=== PATIENT | male | born 1955 | race Caucasian/White ===

== ENCOUNTER 2017-02-19 10:32 | Inpatient (IN) | payer BC, OTHER ==
[~2017-02-19] VITALS: Ht 182.9 cm; Wt 127.8 kg
[2017-02-19] MEDS ORDERED: SODIUM CHLORIDE FLUSH 10ML SYR IVF ONE (11:00)
[2017-02-19] MEDS ORDERED: SODIUM CHLORIDE 0.9% 1,000 ML IV ONE (11:00)
[2017-02-19 12:03] LABS: HEMATOCRIT 44.8 % (39.2-51.8); HEMOGLOBIN 15.2 g/dL (13.7-18.0); WHITE BLOOD COUNT 12.8 x10^3/uL (3.4-10)
[2017-02-19 12:17] LABS: BLOOD UREA NITROGEN 20 mg/dL (7-18)
[2017-02-19 12:22] LABS: ASPARTATE AMINO TRANSFERASE 36 U/L (15-37)
[2017-02-19 12:34] LABS: DIFF TOTAL CELLS COUNTED 100 CELL DIFF
[2017-02-19 12:36] LABS: VERIFY COUNTS? YES
[2017-02-19] MEDS ORDERED: OMNIPAQUE 350 MG/ML, 150 ML BOTTLE ONE (13:15)
[2017-02-19] MEDS ORDERED: SODIUM CHLORIDE FLUSH 10ML SYR IVF PRN (14:30)
[2017-02-19 17:26] VITALS: BP 144/89
[2017-02-19] MEDS ORDERED: MORPHINE SULFATE 4 MG/ML, 1ML IVPush ONE ×2 (17:30→18:00)
[2017-02-19] MEDS ORDERED: PNEUMOCOCCAL VACC.PER PHARMACY IM ONE (17:30)
[2017-02-19] MEDS ORDERED: D5%-0.45% NACL 1,000 ML IV SCH (17:51)
[2017-02-19] MEDS ORDERED: ONDANSETRON 2MG/ML, 2ML IVPush PRN (18:00)
[2017-02-19] MEDS ORDERED: LABETALOL 5MG/ML, 20ML IVPush PRN (18:00)
[2017-02-19 18:10] LABS: ABG COLLECTION SITE RIGHT RADIAL; COLLATERAL CIRCULATION TESTING NORMAL
[2017-02-19] MEDS ORDERED: VANCOMYCIN PMX 1GM/200ML 200 ML IV ONE (18:30)
[2017-02-19] MEDS ORDERED: PHARMACOKINETIC CONSULTATION MC ONE (18:30)
[2017-02-19] MEDS ORDERED: PHARMACOKINETIC MONITORING MC PRN (18:30)
[2017-02-19] MEDS ORDERED: CEFTRIAXONE PMX 2GM/50ML 50 ML IV SCH (18:30)
[2017-02-19] MEDS ORDERED: VANCOMYCIN PER PHARMACY MC PRN (18:30)
[2017-02-19] MEDS ORDERED: VANCOMYCIN 1,800 MG in SODIUM CHLORIDE 0.9% 250 ML IV SCH (19:00)
[2017-02-19 19:13] LABS: IS PT STATUS REG ER OR PRE ER? NO
[2017-02-19 19:21] LABS: PROTIME 15.5 Seconds (9.6-11.5)
[2017-02-19] MEDS: METRONIDAZOLE PMX 500MG/100ML 100 ML IV SCH (20:22)
[2017-02-19] MEDS: D5%-0.9% NACL 1,000 ML IV SCH (20:22)
[2017-02-19 20:38] VITALS: BP 137/89
[2017-02-19] MEDS: morphine SULFATE 10 MG/ML, 1ML IVPush PRN (20:54)
[2017-02-19] MEDS: ENOXAPARIN 40 MG/0.4 ML SQ SCH (21:28)
[2017-02-19] MEDS: VANCOMYCIN 1,600 MG in SODIUM CHLORIDE 0.9% 250 ML IV SCH (23:16)
[2017-02-20] MEDS: morphine SULFATE 10 MG/ML, 1ML IVPush PRN ×2 (00:24→20:47)
[2017-02-20 00:43] VITALS: BP 88/58
[2017-02-20 01:05] LABS: IS PT STATUS REG ER OR PRE ER? NO
[2017-02-20 01:34] VITALS: BP 88/62
[2017-02-20] MEDS: ACETAMINOPHEN 325 MG TABLET PO PRN ×2 (02:49→17:02)
[2017-02-20] MEDS: METRONIDAZOLE PMX 500MG/100ML 100 ML IV SCH ×2 (03:40→13:09)
[2017-02-20 03:54] VITALS: BP 87/62
[2017-02-20] MEDS ORDERED: SODIUM CHLORIDE 0.9%, 500ML IVBOLUS ONE (04:30)
[2017-02-20 05:10] LABS: HEMATOCRIT 41.4 % (39.2-51.8); HEMOGLOBIN 13.9 g/dL (13.7-18.0); WHITE BLOOD COUNT 10.2 x10^3/uL (3.4-10)
[2017-02-20 05:17] LABS: BLOOD UREA NITROGEN 27 mg/dL (7-18)
[2017-02-20 05:25] LABS: ASPARTATE AMINO TRANSFERASE 57 U/L (15-37)
[2017-02-20 05:27] LABS: IS PT STATUS REG ER OR PRE ER? NO
[2017-02-20 05:41] LABS: DIFF TOTAL CELLS COUNTED 100 CELL DIFF
[2017-02-20 05:43] LABS: VERIFY COUNTS? YES
[2017-02-20] MEDS: VANCOMYCIN 1,600 MG in SODIUM CHLORIDE 0.9% 250 ML IV SCH ×2 (07:17→20:32)
[2017-02-20 07:54] LABS: ABG COLLECTION SITE RIGHT RADIAL; COLLATERAL CIRCULATION TESTING NORMAL
[2017-02-20] MEDS ORDERED: LIDOCAINE 1%, 2ML ONE (08:21)
[2017-02-20] MEDS: NOREPINEPHRINE 4 MG in SODIUM CHLORIDE 0.9% 246 ML IV PRN ×2 (08:32→20:32)
[2017-02-20] MEDS ORDERED: MAGNESIUM SULFATE PMX 2GM/50ML 50 ML IV ONE (09:30)
[2017-02-20] MEDS: PANTOPRAZOLE 40 MG IV IVPush SCH (10:10)
[2017-02-20 10:11] LABS: DAU SCREEN DISCLAIMER
[2017-02-20 11:31] LABS: IS PT STATUS REG ER OR PRE ER? NO
[2017-02-20] MEDS ORDERED: SODIUM CHLORIDE 0.9%, 250ML IVBOLUS ONE ×2 (15:30→19:00)
[2017-02-20] MEDS: ENOXAPARIN 40 MG/0.4 ML SQ SCH (15:51)
[2017-02-20 17:38] LABS: IS PT STATUS REG ER OR PRE ER? NO
[2017-02-20] MEDS ORDERED: D5%-0.45% NACL 1,000 ML IV SCH (17:51)
[2017-02-20] MEDS: D5%-0.9% NACL 1,000 ML IV SCH (21:38)
[2017-02-21] MEDS: NOREPINEPHRINE 4 MG in SODIUM CHLORIDE 0.9% 246 ML IV PRN ×2 (03:29→14:38)
[2017-02-21 03:50] LABS: ASPARTATE AMINO TRANSFERASE 69 U/L (15-37); BLOOD UREA NITROGEN 41 mg/dL (7-18)
[2017-02-21 04:09] LABS: HEMATOCRIT 37.9 % (39.2-51.8); HEMOGLOBIN 12.6 g/dL (13.7-18.0); WHITE BLOOD COUNT 9.3 x10^3/uL (3.4-10)
[2017-02-21] MEDS: VANCOMYCIN 1,600 MG in SODIUM CHLORIDE 0.9% 250 ML IV SCH (06:50)
[2017-02-21] MEDS: PANTOPRAZOLE 40 MG IV IVPush SCH (08:21)
[2017-02-21 09:41] LABS: HIT LOT CART23835/KIT23844
[2017-02-21 09:50] LABS: IS PT STATUS REG ER OR PRE ER? NO
[2017-02-21 10:27] LABS: HIT OBC PASS; HIT RESULT POSITIVE (NEGATIVE)
[2017-02-21] MEDS: ACETAMINOPHEN 325 MG TABLET PO PRN (10:51)
[2017-02-21] MEDS ORDERED: DAPTOMYCIN 750 MG in SODIUM CHLORIDE 0.9% 100 ML IVPB SCH (11:00)
[2017-02-21] MEDS: D5%-0.9% NACL 1,000 ML IV SCH ×2 (13:11→23:50)
[2017-02-21] MEDS: morphine SULFATE 10 MG/ML, 1ML IVPush PRN ×2 (13:11→23:50)
[2017-02-21] MEDS: SODIUM CHLORIDE 0.9%, 250ML IVBOLUS PRN ×2 (15:22→17:04)
[2017-02-21] MEDS ORDERED: NALOXONE 0.4 MG/ML, 1ML ONE (17:43)
[2017-02-21] MEDS ORDERED: NALOXONE 0.4 MG/ML, 1ML IVPush ONE (18:00)
[2017-02-21] MEDS ORDERED: ENOXAPARIN 30 MG/0.3 ML SQ SCH (18:00)
[2017-02-21] MEDS ORDERED: ALTEPLASE 0 MG in SYRINGE 1 EA IV ONE (19:30)
[2017-02-21] MEDS ORDERED: ALTEPLASE 9 MG in SYRINGE 1 EA IV ONE (20:00)
[2017-02-21] MEDS ORDERED: ALTEPLASE 81 MG in BAG 1 EACH IV ONE (20:00)
[2017-02-21 20:33] LABS: HEMOGLOBIN 12.1 g/dL (13.7-18.0)
[2017-02-21] MEDS ORDERED: LABETALOL 5MG/ML, 20ML IVPush PRN (22:00)
[2017-02-21] MEDS ORDERED: ONDANSETRON 2MG/ML, 2ML IVPush PRN (22:00)
[2017-02-22 04:37] LABS: BLOOD UREA NITROGEN 54 mg/dL (7-18)
[2017-02-22 04:41] LABS: ASPARTATE AMINO TRANSFERASE 56 U/L (15-37)
[2017-02-22 05:04] LABS: HEMATOCRIT 35.1 % (39.2-51.8); HEMOGLOBIN 11.8 g/dL (13.7-18.0); WHITE BLOOD COUNT 12.2 x10^3/uL (3.4-10)
[2017-02-22 05:11] LABS: DIFF TOTAL CELLS COUNTED 100 CELL DIFF
[2017-02-22 05:19] LABS: ANISOCYTOSIS 1+; VERIFY COUNTS? YES
[2017-02-22] MEDS ORDERED: CEFAZOLIN 1,000 MG IV SCH (09:30)
[2017-02-22] MEDS ORDERED: CEFAZOLIN PMX 2GM/50ML 50 ML IVPB SCH (10:00)
[2017-02-22] MEDS: PANTOPRAZOLE 40 MG IV IVPush SCH (10:03)
[2017-02-22] MEDS ORDERED: ATROPINE OPHTH SOLN 1%, 2ML PO PRN (10:30)
[2017-02-22] MEDS: LORazepam 10 MG in DEXTROSE 5% 245 ML IV SCH ×2 (12:54→18:19)
[2017-02-22] MEDS ORDERED: SCOPOLAMINE PATCH, 1.5MG PATCH.TD72 TD SCH (13:30)
[2017-02-23] MEDS ORDERED: DAPTOMYCIN 750 MG in SODIUM CHLORIDE 0.9% 100 ML IVPB SCH (11:00)
[2017-02-25 05:06] LABS: SRA, LOW DOSE HEPARIN 1 % (0-20)
== END 2017-02-22 21:30 | disposition expired | DRG 871 ==
LOC: ED 12:47 → EDIP 14:04 → 5SO 15:41 → ICU 02-20 07:27 → 3NW 02-22 12:09
PROVIDERS: ADMIT Internal Medicine
PROC: 02HV33Z Insertion of Infusion Device into Superior Vena Cava, Percutaneous Approach (ICD-10-PCS; principal; 2017-02-20)
PROC: B548ZZA Ultrasonography of Superior Vena Cava, Guidance (ICD-10-PCS; 2017-02-20)
PROC: 30233N1 Transfusion of Nonautologous Red Blood Cells into Peripheral Vein, Percutaneous Approach (ICD-10-PCS; 2017-02-21)
DX: A41.01 Sepsis due to Methicillin susceptible Staphylococcus aureus (principal); G93.40 Encephalopathy, unspecified; E43 Unspecified severe protein-calorie malnutrition; I21.4 Non-ST elevation (NSTEMI) myocardial infarction; R65.21 Severe sepsis with septic shock; I63.40 Cerebral infarction due to embolism of unspecified cerebral artery; I50.41 Acute combined systolic (congestive) and diastolic (congestive) heart failure; J96.90 Respiratory failure, unspecified, unspecified whether with hypoxia or hypercapnia; G81.91 Hemiplegia, unspecified affecting right dominant side; N17.9 Acute kidney failure, unspecified; I87.1 Compression of vein; F17.210 Nicotine dependence, cigarettes, uncomplicated; I27.2 Other secondary pulmonary hypertension; I08.0 Rheumatic disorders of both mitral and aortic valves; Z51.5 Encounter for palliative care; D75.82 Heparin induced thrombocytopenia (HIT); M54.9 Dorsalgia, unspecified; Z85.71 Personal history of Hodgkin lymphoma; Z85.72 Personal history of non-Hodgkin lymphomas; Z92.21 Personal history of antineoplastic chemotherapy; Z68.38 Body mass index [BMI] 38.0-38.9, adult
CPT/HCPCS: 36415; 36569; 36600; 70450; 71010; 71275; 76770; 76937; 77001; 80053; 80307; 81001; 82374; 82542; 82550; 82565; 82803; 82962; 83605; 83735; 83880; 84100; 84145; 84153; 84484; 85025; 85049; 85379; 85384; 85610; 85730; 86022; 86850; 86900; 87040; 87077; 87081; 87150; 87186; 93005; 93306; 93970; 96360; 96361; J0690; J0696; J0878; J1650; J2060; J2310; J3370; J7042; J7060; Q9967; C1751; C9113; J2270; J3475; J7030; J7040; J7050; P9035